=== PATIENT | male | born 1950 | race Caucasian/White ===

== ENCOUNTER 2017-12-24 07:56 | Inpatient (IN) | payer OTHER, BC ==
[2017-12-21 11:36] VITALS: BMI 25.8
[~2017-12-24 07:56] MED LIST: oxyCODONE HCL 10 MG SUSTAINED ACTING TABLET PO ONE
[2017-12-24] MEDS ORDERED: oxyCODONE HCL 10 MG SUSTAINED ACTING TABLET ONE (08:42)
[2017-12-24] MEDS ORDERED: PROPOFOL 20 ML ONE ×11 (09:18→13:59)
[2017-12-24] MEDS ORDERED: fentaNYL CITRATE 250 MCG/5 ML VIAL ONE (09:18)
[2017-12-24] MEDS ORDERED: SUCCINYLCHOLINE CHLORIDE 200 MG/10 ML VIAL ONE (09:18)
[2017-12-24] MEDS ORDERED: LIDOCAINE HCL/PF 2% SDV 5ML VIAL ONE (09:19)
[2017-12-24] MEDS ORDERED: ONDANSETRON 4 MG/2 ML VIAL ONE (09:19)
[2017-12-24] MEDS ORDERED: MIDAZOLAM HCL 2 MG/2 ML SINGLE DOSE VIAL ONE ×2 (09:19→10:56)
[2017-12-24] MEDS ORDERED: DEXAMETHASONE SOD PHOSPHATE 4 MG/1 ML VIAL ONE (09:19)
[2017-12-24] MEDS ORDERED: BUPIVACAINE HCL/PF (5 MG/ML) 30 ML VIAL IJ ONE (10:56)
[2017-12-24] MEDS ORDERED: DEXAMETHASONE SOD PHOSPHATE/PF 10 MG/ML SDV ONE (10:57)
--- NOTE | 2017-12-24 11:06 | HP ---
History & Physical Update - History History: No Change - Physical Physical: No Change - Assessment Assessment: No Change - Plan Plan: No Change
[2017-12-24] MEDS ORDERED: LIDOCAINE 1%/EPI 1:100000 (20 ML MULTI DOSE VIAL) ONE (11:40)
[2017-12-24] MEDS ORDERED: THROMBIN (BOVINE) 5,000 UNIT VIAL TP ONE ×2 (11:40→13:05)
[2017-12-24] MEDS ORDERED: ONDANSETRON 4 MG/2 ML VIAL IVPUSH PRN ×2 (12:15→14:50)
[2017-12-24] MEDS ORDERED: LACTATED RINGERS SOLUTION 1,000 ML IV SCH ×2 (12:15→15:00)
[2017-12-24] MEDS ORDERED: ePHEDrine SULFATE 50 MG/1 ML AMPULE ONE (12:30)
[2017-12-24] MEDS ORDERED: ceFAZolin SODIUM 1 GM VIAL ONE (12:35)
[2017-12-24] MEDS ORDERED: LIDOCAINE 1%/EPI 1:100000 (20 ML MULTI DOSE VIAL) INF ONE (12:41)
[2017-12-24] MEDS ORDERED: GELATIN SPONGE,ABSORBABLE 1 GM PACKET TP ONE (14:18)
--- NOTE | 2017-12-24 14:49 | OP ---
Operative Note - Note: Operative Date: 12/24/17 Pre-Operative Diagnosis: spinal stenosis C3/4 and C4/5 Operation: anterior cervical fusion of C3/4 and C4/5 Surgeon: Nikos Walker Mental Health Consultant: Carmen Meza Anesthesiologist/EQUITY RESEARCH ANALYST: Rona Alves Anesthesia: General Specimens Removed: disc Estimated Blood Loss (mls): 30 Fluid Volume Replaced (mls): 1,000 Operative Report Dictated: Yes
[2017-12-24] MEDS ORDERED: oxyCODONE HCL 5 MG TABLET PO PRN ×2 (14:50)
--- NOTE | 2017-12-24 14:57 | SURG ---
Surgery Draw Fire Operator Note Draw Fire Operator: Carmen Meza PA-C Date of Service: 12/24/17 Diagnosis: spinal stenosis C3/4 and C4/5 Procedure: anterior cervical fusion of C3/4 and C4/5 I was present for the entirety of the operative procedure. For further detail, please refer to operative report. Visit type - Case Type Case Type: Scheduled Admission - Emergency Emergency Visit: No - New patient This patient is new to me today: Yes Date on this admission: 12/24/17
[2017-12-24] MEDS ORDERED: ACETAMINOPHEN 325 MG TABLET (FP) PO SCH (15:00)
[2017-12-24] MEDS ORDERED: traMADol HCL 50 MG TABLET PO SCH (16:00)
[2017-12-24] MEDS ORDERED: diazePAM 2 MG TABLET PO ONE (16:00)
[2017-12-24] MEDS ORDERED: diazePAM 2 MG TABLET ONE (16:05)
[2017-12-24 18:44] VITALS: BP 144/82; PULSE 80; TEMP 97.9
[2017-12-24] MEDS ORDERED: DEXAMETHASONE SOD PHOSPHATE 20 MG/5 ML VIAL IVPB SCH (21:00)
[2017-12-24] MEDS ORDERED: CEFAZOLIN 1 GM/D5W 1 GM/50 ML BAG IVPB SCH (21:00)
--- NOTE | 2017-12-25 08:47 | OP ---
DATE OF OPERATION: 12/24/2017 PREOPERATIVE DIAGNOSIS: Cervical stenosis C3-4, C4-5. POSTOPERATIVE DIAGNOSIS: Cervical stenosis C3-4, C4-5. PROCEDURE PERFORMED: 1. Anterior cervical diskectomy and fusion C3-4. 2. Anterior cervical diskectomy and fusion C4-5. 3. Placement of prosthetic cage C3-4, C4-5. 4. Placement of instrumentation C3-4, C4-5. SURGEON: Nikos Walker MD RESIDENTIAL REMODELING SUBCONTRACTOR: AMANDA Aiken ESTIMATED BLOOD LOSS: 50 mL. INTRAVENOUS FLUIDS: Per Anesthesia. COMPLICATIONS: None. DISPOSITION: Patient brought to the PACU in stable condition. INDICATION FOR SURGERY: The patient is a 67-year-old gentleman who has been suffering from pain from his neck down his arms. X-rays and MRI were completed which showed he had cervical stenosis. He had also had difficulty with walking. MRI noted he had cervical stenosis, and I discussed the natural history of cervical myelopathy with the patient. Risks, benefits, and alternatives were discussed with the patient, and the patient consented to surgery. DESCRIPTION OF PROCEDURE: Patient brought to the operating room by anesthesia staff. After appropriate patient identification was performed, general anesthesia was given. A cervical block was given as well. Patient was placed supine on the OR bed, his arms tucked in at the side. All areas of bony prominences were well padded at this time. A shoulder roll was placed underneath his neck to extend his neck to the point that he could tolerate it in the preoperative holding area. A needle was taped onto his neck to chavez off the C3-4 level. An x-ray was taken to confirm correct. Needle was removed, and 10 mL of lidocaine with epinephrine was injected into his neck at this time. His neck was prepped and draped in a sterile manner. At this point a timeout was completed. A 2-inch incision was made in the left side of his neck. Dissection was carried down to the platysma. The platysma was cut in line with the skin incision. Next, the interval between the sternocleidomastoid and strap muscles was developed. Next the interval between the carotid sheath and esophagus was developed. Peanuts were used to elevate it off the prevertebral fascia. A needle was placed into the C3-4 disk. An x-ray was taken to confirm this was correct. Needle was removed and [place] pins were placed in the body of C3 and C5. Longus colli muscles were elevated off and retractor blades were placed in. A knife was used to incise this and distraction was applied. At this point the microscope was brought in. Using a series of pituitaries, Kerrisons, and curettes diskectomies were completed at C3-4 and C4-5. Endplates were decorticated. Cages filled with bone graft were placed in. We let go of the distraction. Screws were placed into the body of C3, C4, and C5. [place] pins were removed. AP and lateral x-rays confirmed instrumentation in good position. Final tightening was performed. The platysma was closed with a 2-0 Vicryl suture. Skin was closed with 3-0 Monocryl suture. Dermabond was applied. Steri-Strips were applied. Sterile dressing was applied. Patient was placed supine on the bed, extubated in the OR and brought to the PACU in stable condition. Anthony [id number] MTDD
--- NOTE | 2017-12-28 12:10 | PATH ---
Surgical Pathology Report Patient Name: ANISH CASILLAS [facility]. Rec. #: [id number] /Age/Gender: 1950 (Age: 67) / M Account: [id number] [facility] Taken: 12/24/2017 Received: 12/24/2017 Reported: 12/28/2017 Physicians: Nikos Walker M.D. Specimen(s) Received C3-4,C4-5 DISCS Clinical History Cervical stenosis Final Diagnosis INTERVERTEBRAL DISC, C3-4 AND C4-5, PARTIAL EXCISION: PORTIONS OF INVERVERTEBRAL DISC. Electronically Signed Ronal Arellano M.D. Gross Description Received in formalin labeled "C3-4, C4-5 disc," is a 2.3 x 2.0 x 0.2 cm aggregate of gomez fragments of fibrocartilaginous tissue. The specimen is entirely submitted in one cassette. /12/25/201712/25/2017
== END 2017-12-24 18:20 | disposition home or self-care (01) ==
LOC: FASU 07:56 → FM/S 07:56 → EDSTATUS 08:15 → FASU 18:20 → UNDOADMIN 01-01 07:41 → FM/S 01-01 07:41
PROVIDERS: ADMIT Orthopaedic Surgery Orthopaedic Surgery of the Spine; ATTEND Orthopaedic Surgery Orthopaedic Surgery of the Spine
PROC: 0RG10A0 Fusion of Cervical Vertebral Joint with Interbody Fusion Device, Anterior Approach, Anterior Column, Open Approach (ICD-10-PCS; 2017-12-24)
PROC: 0RG10K0 Fusion of Cervical Vertebral Joint with Nonautologous Tissue Substitute, Anterior Approach, Anterior Column, Open Approach (ICD-10-PCS; 2017-12-24)
PROC: 0RB30ZZ Excision of Cervical Vertebral Disc, Open Approach (ICD-10-PCS; principal; 2017-12-24 12:56)
DX: M48.02 Spinal stenosis, cervical region (principal)
CPT/HCPCS: 72050-TC-FY; 76000-TC-FY; 88304-TC; 94760